=== PATIENT | male | born 1965 | race Caucasian/White ===

== ENCOUNTER → 2025-01-14 | Outpatient (CLI) | payer BC ==
--- NOTE | 2025-01-14 07:43 | CTL ---
EXAMINATION TYPE: CT Low Dose Lung DATE OF EXAM: 01/14/2025 7:20 AM COMPARISON: None. CLINICAL INDICATION: Male, 59 years old with history of Z12.2 screening for malignant neoplasm; Forme r smoker, quit 2020 was 1 ppd x 37 years, history of tobacco use. TECHNIQUE: Multiple axial non-contrast scans were obtained from approximately the lung apices through the upper abdomen. Coronal and sagittal reformatted images were obtained. Low dose technique was uti lized. MIP were created on a separate workstation and submitted for review. CT DLP: 110.10 mGycm, Automated exposure control for dose reduction was used. CT Contrast: Contrast used: None Oral contrast used: None FINDINGS: Lack of intravenous contrast and low dose technique limits the evaluation of the vascular and soft ti ssue structures. LUNGS: No evidence of pulmonary fibrosis. No evidence of focal consolidation, pneumothorax or pleural effusion. Centrilobular emphysema changes. Nodules: RUL: None. RML: None. RLL: None. FARIHA: None. LLL: None. AIRWAY: Patent and unremarkable. HEART: Size within normal limits. Moderate coronary artery calcifications present. MEDIASTINUM: No gross evidence of adenopathy. VASCULATURE: Atherosclerotic calcifications are present throughout the aorta and its branches. MUSCULOSKELETAL: Mild disc degeneration changes are present throughout the thoracolumbar spine. Scoli osis changes of the spine are mild. SOFT TISSUES/LYMPH NODES: Unremarkable. LOWER NECK: No significant findings. UPPER ABDOMEN: No significant findings. IMPRESSION: 1. No clinically significant pulmonary nodules. 2. Mild emphysema. CT LUNG RAD AND CT CHEST RECOMMENDATION: Lung-Rad 1 Negative: Continue annual screening with LDCT in 12 months. S Modifier (other clinically significant findings): None Recommend smoking cessation (if current smoker), or continuation of smoking cessation (if prior smoke r). Annual screening for lung cancer with low-dose computed tomography is recommended in adults ages 55 to 77 years who have a 30 pack-year smoking history and currently smoke or have quit within the pa st 15 years. Screening should be discontinued once a person has not smoked for 15 years or develops a health problem that substantially limits life expectancy or the ability or willingness to have curat ladonna lung surgery. Lung rads 2021 [email or web address] [email or web address], , 01/14/2025 7:41 AM
== END | disposition home or self-care (01) ==
LOC: RADCTMAIN 06:51
PROVIDERS: ATTEND Family Medicine
DX: Z12.2 Encounter for screening for malignant neoplasm of respiratory organs (principal); J43.2 Centrilobular emphysema; Z87.891 Personal history of nicotine dependence
CPT/HCPCS: 71271